=== PATIENT | male | born 1980 | race Caucasian/White ===

== ENCOUNTER → 2024-07-07 11:43 | Outpatient (CLI) | payer OTHER, SELFPAY ==
--- NOTE | 2024-07-07 11:44 | DI.US.S_ITS ---
PROCEDURE: US EXTREMITY NONVASC UPPER LT INDICATIONS: Mass of left upper ext. TECHNIQUE: Real-time scanning was performed of the left upper extremity , with image documentation. COMPARISON: None. FINDINGS: At the area of concern in the left upper extremity overlying the antecubital fossa, there is a 1.5 x 0.3 x 1.7 cm ellipsoid, isoechoic mass without significant internal vascularity and smooth borders. 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 Dictated by: Mal Aragon M.D. on 07/08/2024 at 10:51 Approved by: Mal Aragon M.D. on 07/08/2024 at 10:53
== END ==
PROVIDERS: PCP Family Medicine; Referring Provider Family Medicine; Visit Provider Family Medicine
DX: R22.32 Localized swelling, mass and lump, left upper limb (principal)
CPT/HCPCS: 76882